=== PATIENT | male | born 1990 | race Caucasian/White ===

== ENCOUNTER 2021-12-10 08:56 | Emergency (ER) | payer OTHER, BC ==
[2021-12-10] MEDS ORDERED: Silver Sulfadiazine 1% Crm 50 GM Tube TOP ONE (09:29)
[2021-12-10] MEDS ORDERED: Ketorolac 60 MG/2 ML SDV IM ONE (09:36)
== END 2021-12-10 10:22 | disposition home or self-care (01) ==
LOC: CC.ED 08:56
DX: T22.212A Burn of second degree of left forearm, initial encounter (principal); W86.0XXA Exposure to domestic wiring and appliances, initial encounter
CPT/HCPCS: 16020; 96372; 99283-25; 99284; A9270-GY; J1885